=== PATIENT | female | born 1935 | race African-American/Black ===

== ENCOUNTER 2016-05-08 06:09 | Inpatient (IN) | payer OTHER ==
[2016-05-02 11:00] VITALS: BMI 30.3
[2016-05-02 14:33] VITALS: BP_SYST 122; TEMP 97.3
[2016-05-05 16:22] VITALS: BMI 30.3
[2016-05-05 16:25] VITALS: BP_SYST 122; RESP 20; TEMP 97.3
[2016-05-08] VITALS (22 sets, daily range): BP systolic 84–150; RESP 16–20; TEMP 97.1–99; Ht 165.1 cm; Wt 82.6 kg
[~2016-05-08] VITALS: Ht 165.1 cm; Wt 82.6 kg
[2016-05-08] MEDS ORDERED: CEFAZOLIN 2,000 MG in SODIUM CHLORIDE 0.9% 100 ML IV ONE (06:15)
[2016-05-08] MEDS ORDERED: ROPIVACAINE 0.5% 139 MG, EPINEPHrine 1:1,000 0.2 MG, KETOROLAC INJ 30 MG, MORPHINE 10 MG SUBQ ONE ×4 (06:15)
[2016-05-08] MEDS ORDERED: LIDOCAINE 1% BUFFERED 1 ML SYR INTRADERM PRN (06:20)
[2016-05-08] MEDS ORDERED: LACT RINGERS 1,000 ML IV SCH (06:20)
[2016-05-08] MEDS ORDERED: ONDANSETRON 4 MG VIAL IV ONE (06:20)
[2016-05-08] MEDS ORDERED: MIDAZOLAM 2 MG/2 ML INJ IV ONE (06:20)
[2016-05-08] MEDS ORDERED: SOLU-CORTEF 100 MG/2 ML IV ONE (06:20)
[2016-05-08] MEDS ORDERED: GLYCOPYRROLATE 0.2 MG/ML VIAL IV ONE ×2 (06:20→09:43)
[2016-05-08] MEDS ORDERED: ONDANSETRON 4 MG VIAL IV PRN ×2 (07:05→08:50)
[2016-05-08] MEDS ORDERED: MORPHINE 2 MG/ML SYR IV PRN ×2 (07:05→08:50)
[2016-05-08] MEDS ORDERED: DILAUDID 1 MG/ML AMP IV PRN (07:05)
[2016-05-08] MEDS ORDERED: MORPHINE 4 MG/ML SYR IV PRN ×2 (07:05→08:50)
[2016-05-08] MEDS ORDERED: MEPERIDINE 25 MG/ML IV PRN (07:05)
[2016-05-08] MEDS ORDERED: KETOROLAC 15 MG/ML VIAL IV PRN (08:50)
[2016-05-08] MEDS ORDERED: TEMAZEPAM 7.5 MG CAP PO PRN (08:50)
[2016-05-08] MEDS ORDERED: SALINE FLUSH 10 ML FLUSH PRN (08:50)
[2016-05-08] MEDS ORDERED: ONDANSETRON 4 MG TAB PO PRN (08:50)
[2016-05-08] MEDS ORDERED: MAG HYDROX 30 ML UDC PO PRN (08:50)
[2016-05-08] MEDS ORDERED: D5-1/2-NS W/KCL 20MEQ/L 1,000 ML IV SCH (08:50)
[2016-05-08] MEDS: DOCUSATE SOD 100 MG CAP PO SCH ×2 (09:00→20:54)
[2016-05-08] MEDS: MULTIVITS/MINERALS (THERAGRAN M) TAB PO SCH (09:00)
[2016-05-08] MEDS: MAG HYDROX 30 ML UDC PO SCH (09:00)
[2016-05-08] MEDS ORDERED: BACITRACIN 50,000 UNITS INJ IRRIG ONE (09:38)
[2016-05-08] MEDS ORDERED: ACETAMINOPHEN 1,000 MG/100 ML IV ONE (09:43)
[2016-05-08] MEDS ORDERED: FENTANYL 100 MCG/2 ML AMP IV ONE (09:43)
[2016-05-08] MEDS ORDERED: ROCURONIUM 50 MG VIAL IV ONE (09:43)
[2016-05-08] MEDS ORDERED: DEXAMETHASONE 4 MG/ML VIAL IV ONE (09:43)
[2016-05-08] MEDS ORDERED: PROPOFOL 20 ML PER ML IV ONE (09:43)
[2016-05-08] MEDS ORDERED: DILAUDID 1 MG/ML AMP IV ONE (09:43)
[2016-05-08] MEDS ORDERED: NEOSTIGMINE 10 MG/10 ML VIAL IV ONE (09:43)
[2016-05-08] MEDS ORDERED: LIDOCAINE 2% SYR 5 ML IV ONE (09:43)
[2016-05-08] MEDS ORDERED: SODIUM CHLORIDE 0.9% 250 ML IV ONE (12:30)
[2016-05-08] MEDS: CEFAZOLIN 2,000 MG in SODIUM CHLORIDE 0.9% 100 ML IV SCH ×2 (13:38→18:15)
[2016-05-08] MEDS: LEVOTHYROXINE 0.1 MG TAB PO SCH (14:53)
[2016-05-08] MEDS: VENLAFAXINE XR 150 MG CAP PO SCH (14:53)
[2016-05-08] MEDS: NEB-XOPENEX 0.63 MG/3 ML INH SCH ×3 (16:07→22:09)
[2016-05-08] MEDS: SALINE FLUSH 10 ML FLUSH SCH (19:32)
[2016-05-08] MEDS: SENNA 8.6 MG TAB PO SCH (20:54)
[2016-05-08] MEDS: PANTOPRAZOLE 40 MG TAB PO SCH (20:57)
[2016-05-09] MEDS: CEFAZOLIN 2,000 MG in SODIUM CHLORIDE 0.9% 100 ML IV SCH ×2 (00:22→06:00)
[2016-05-09] MEDS: SOLU-CORTEF 100 MG/2 ML IV SCH ×3 (00:22→16:28)
[2016-05-09 04:21] VITALS: BP_SYST 143; TEMP 98.3
[2016-05-09 04:22] VITALS: RESP 20
[2016-05-09] MEDS: SODIUM CHLORIDE 0.9% FLUSH BAG 500 ML IV SCH (05:16)
[2016-05-09] MEDS: FONDAPARINUX 2.5 MG SYR SUBQ SCH (05:56)
[2016-05-09] MEDS: LEVOTHYROXINE 0.1 MG TAB PO SCH (06:00)
[2016-05-09 07:23] VITALS: BP_SYST 135; RESP 16; TEMP 98
[2016-05-09] MEDS: NEB-XOPENEX 0.63 MG/3 ML INH SCH ×5 (07:25→22:33)
[2016-05-09] MEDS: SALINE FLUSH 10 ML FLUSH SCH ×2 (09:06→20:35)
[2016-05-09] MEDS: MAG HYDROX 30 ML UDC PO SCH (09:08)
[2016-05-09] MEDS: VENLAFAXINE XR 150 MG CAP PO SCH (09:08)
[2016-05-09] MEDS: DOCUSATE SOD 100 MG CAP PO SCH ×2 (09:08→20:30)
[2016-05-09] MEDS: POLYETHYLENE GLYCOL 17 GM PACKET PO SCH (09:09)
[2016-05-09] MEDS: MULTIVITS/MINERALS (THERAGRAN M) TAB PO SCH (09:09)
[2016-05-09] MEDS ORDERED: FLEET ENEMA 132 ML BTL RECTAL PRN (10:00)
[2016-05-09] MEDS ORDERED: BISACODYL 10 MG SUPP RECTAL PRN (10:00)
[2016-05-09 11:35] VITALS: BP_SYST 149; RESP 16; TEMP 98.1
[2016-05-09 16:09] VITALS: BP_SYST 127; RESP 16; TEMP 97.1
[2016-05-09 19:48] VITALS: BP_SYST 159; RESP 18; TEMP 97.6
[2016-05-09] MEDS: SENNA 8.6 MG TAB PO SCH (20:30)
[2016-05-09] MEDS: PANTOPRAZOLE 40 MG TAB PO SCH (20:30)
[2016-05-10 00:17] VITALS: BP_SYST 135; RESP 18; TEMP 98.4
[2016-05-10] MEDS: SOLU-CORTEF 100 MG/2 ML IV SCH ×2 (00:36→08:00)
[2016-05-10 04:34] VITALS: BP_SYST 131; RESP 18; TEMP 97.7
[2016-05-10] MEDS: FONDAPARINUX 2.5 MG SYR SUBQ SCH (05:37)
[2016-05-10] MEDS: SODIUM CHLORIDE 0.9% FLUSH BAG 500 ML IV SCH (05:38)
[2016-05-10] MEDS: LEVOTHYROXINE 0.1 MG TAB PO SCH (06:25)
[2016-05-10] MEDS: NEB-XOPENEX 0.63 MG/3 ML INH SCH (07:04)
[2016-05-10 07:39] VITALS: BP_SYST 143; RESP 16; TEMP 97.7
[2016-05-10] MEDS ORDERED: MISSING DOSE XX ONE (07:50)
[2016-05-10] MEDS: SALINE FLUSH 10 ML FLUSH SCH (08:15)
[2016-05-10] MEDS: SENNA 8.6 MG TAB PO SCH (08:16)
[2016-05-10] MEDS: VENLAFAXINE XR 150 MG CAP PO SCH (08:16)
[2016-05-10] MEDS: MAG HYDROX 30 ML UDC PO SCH (08:16)
[2016-05-10] MEDS: POLYETHYLENE GLYCOL 17 GM PACKET PO SCH (08:16)
[2016-05-10] MEDS: MULTIVITS/MINERALS (THERAGRAN M) TAB PO SCH (08:16)
[2016-05-10] MEDS: DOCUSATE SOD 100 MG CAP PO SCH (08:16)
[2016-05-10] MEDS ORDERED: PREDNISONE 20 MG TAB PO SCH (09:00)
[2016-05-10 11:27] VITALS: BP_SYST 143; RESP 16; TEMP 97.7
[2016-05-10 11:37] VITALS: BP_SYST 129; RESP 16; TEMP 97.5
== END 2016-05-10 12:36 | disposition home health service (06) | DRG 470 ==
LOC: ENRESERVTM → ENRESERVDT → SDS 06:09 → 2NO 09:48
PROVIDERS: ADMIT Internal Medicine; ATTEND Internal Medicine
PROC: 0SR904A Replacement of Right Hip Joint with Ceramic on Polyethylene Synthetic Substitute, Uncemented, Open Approach (ICD-10-PCS; principal; 2016-05-08 07:09)
DX: M16.11 Unilateral primary osteoarthritis, right hip (principal); J44.9 Chronic obstructive pulmonary disease, unspecified; N05.9 Unspecified nephritic syndrome with unspecified morphologic changes; I95.81 Postprocedural hypotension; I10 Essential (primary) hypertension; E78.5 Hyperlipidemia, unspecified; E03.9 Hypothyroidism, unspecified; Z72.0 Tobacco use
CPT/HCPCS: 76000; 80048; 80053; 85025; 86850; 86900; 86901; 94640; 94762; 94799